=== PATIENT | male | born 1975 | race Caucasian/White ===

== ENCOUNTER 2023-06-06 09:27 | Emergency (ER) | payer OTHER ==
[2023-06-06 09:42] VITALS: BP 117/87; PULSE 62; RESP 18; TEMP 98; BMI 21.4
[2023-06-06] MEDS ORDERED: IBUPROFEN 100 MG/5 ML UNIT DOSE CUPS PO ONE (10:31)
[2023-06-06] MEDS ORDERED: IBUPROFEN 400 MG TABLET (FP) PO ONE (10:34)
== END 2023-06-06 11:51 | disposition home or self-care (01) ==
LOC: JERFT 09:27 → JER 09:27 → JERFT 11:51
DX: S63.501A Unspecified sprain of right wrist, initial encounter (principal); S70.12XA Contusion of left thigh, initial encounter; M79.652 Pain in left thigh; M25.531 Pain in right wrist; V18.0XXA Pedal cycle driver injured in noncollision transport accident in nontraffic accident, initial encounter
CPT/HCPCS: 73110-TC-RT-FY; 99283-25